=== PATIENT | female | born 1990 | race Two or more races ===

== ENCOUNTER → 2023-11-28 | Outpatient (CLI) | payer BC ==
[~2023-11-28] MED LIST: ACE3T PO
[2023-11-28 16:17] LABS: Urine Bacteria None Seen /hpf (None Seen)
[2023-11-28 16:36] LABS: Basophils # (auto) 0 10 ^3/uL (0-0.2); Basophils % (auto) 0.3 % (0.0-2.0); Eosinophils # (auto) 0.1 10 ^3/uL (0-0.8); Eosinophils % (auto) 0.9 % (0.0-7.0); Hematocrit 41.3 % (36.0-46.0); Hemoglobin 13.5 g/dL (12.2-16.2); Lymphocytes # (auto) 2.1 10 ^3/uL (0.4-5.4); Lymphocytes % (auto) 27.6 % (10.0-50.0); Mean Corpuscular Hemoglobin 28.8 pg (28.0-32.0); Mean Corpuscular Hgb Conc. 32.7 g/dL (32.0-36.0); Mean Corpuscular Volume 88.2 fL (80.0-100.0); Monocytes # (auto) 0.5 10 ^3/uL (0-1.3); Monocytes % (auto) 6.6 % (0.0-12.0); Neutrophils # (auto) 4.8 10 ^3/uL (1.6-8.6); Neutrophils % (auto) 64.6 % (37.0-80.0); Red Blood Cells 4.68 10^6/uL (4.0-5.20); White Blood Cell 7.5 10^3/uL (4.4-10.8)
[2023-11-28 16:41] LABS: Urine Blood 2+ /uL (Negative); Urine Clarity Turbid (Clear); Urine Color Yellow (Yellow); Urine Mucus FEW (None Seen); Urine Protein, UAD TRACE (Negative); Urine Specific Gravity 1.031 (1.001-1.035); Urine Urobilinogen Normal (Negative); Urine WBC 1 /hpf (0 - 5); Urine pH 6.5 (5.0-9.0)
[2023-11-28 16:57] LABS: INR 1.03 (0.9-1.15); Partial Thromboplastin Time 26.2 SEC (24.5-34.5); Prothrombin Time 10.9 sec (9.3-11.8)
[2023-11-28 17:18] LABS: Alanine Aminotransferase 13 U/L (7-40); Albumin 4.6 g/dL (3.2-4.8); Alkaline Phosphatase 70 U/L (46-116); Anion Gap 7 (5-15); Aspartate Aminotransferase 12 U/L (13-40); BUN/Creatinine Ratio 18.7 (10.0-20.0); Bilirubin, Total 0.6 mg/dL (0.2-1.0); Blood Urea Nitrogen 14 mg/dL (9-23); CRP High Sensitivity 0.06 mg/dL (<1.0); Calcium 9.7 mg/dL (8.5-10.1); Carbon Dioxide 28 mmol/L (20-30); Chloride 105 mmol/L (98-107); Glucose 77 mg/dL (74-106); Potassium 3.2 mmol/L (3.5-5.1); Sodium 140 mmol/L (136-145); Total Protein 7.6 g/dL (5.7-8.2)
[2023-11-28 17:22] LABS: Beta HCG, Quantitative 0.7 mIU/mL (1.5-4.2); Thyroid Stimulating Hormone 0.83 uIU/mL (0.55-4.78)
[2023-11-28 17:28] LABS: Erythrocyte Sedimentation Rate 9 mm/hr (0-20)
[2023-11-28 17:41] LABS: Follicle Stimulating Hormone 6.3 IU/L (SEE BELOW); Free T4 (Free Thyroxine) 1.07 ng/dL (0.89-1.76)
[2023-11-28 17:42] LABS: Leuteinizing Hormone 11.6 IU/L
[2023-11-29 08:06] LABS: RPR Non Reactive (Non Reactive); Rheumatoid Arthritis Factor <10.0 IU/mL (<14.0)
[2023-11-29 10:07] LABS: CA 27.29 20.1 U/mL (0.0-38.6)
[2023-11-29 12:06] LABS: Anti-Nuclear Antibody Direct Positive (Negative); Cancer Antigen (CA) 125 12.8 U/mL (0.0-38.1); Cancer Antigen (CA) 15-3 15.5 U/mL (0.0-25.0)
[2023-11-30 15:07] LABS: CCP IgG/IgA Antibody 0 units (0-19)
[2023-12-03 13:06] LABS: Estrogens Total 569 pg/mL (.)
== END | disposition home or self-care (01) ==
LOC: LAB 16:11
PROVIDERS: ATTEND Internal Medicine
DX: N63.0 Unspecified lump in unspecified breast (principal)
CPT/HCPCS: 36415; 80053; 81001; 82306; 82670; 82672; 83001; 83002; 83036; 84439; 84443; 84702; 85025; 85610; 85652; 85730; 86038; 86141; 86200; 86300; 86304; 86431; 86592; 86703; 86803

== ENCOUNTER → 2023-12-18 | Outpatient (CLI) | payer BC | END | disposition home or self-care (01) | LOC: XYW 09:06 | PROVIDERS: ATTEND Surgery | DX: D24.2 Benign neoplasm of left breast (principal); N60.32 Fibrosclerosis of left breast | CPT/HCPCS: 19083; 19084; 88305; A4648; 76642; 76942 ==

== ENCOUNTER 2023-12-19 06:59 | Day surgery (SDC) | payer BC ==
[2023-12-17 15:46] LABS: Urine Bacteria None Seen /hpf (None Seen)
[2023-12-17 15:47] LABS: Basophils # (auto) 0 10 ^3/uL (0-0.2); Basophils % (auto) 0.7 % (0.0-2.0); Eosinophils # (auto) 0.2 10 ^3/uL (0-0.8); Eosinophils % (auto) 2.2 % (0.0-7.0); Hematocrit 39.4 % (36.0-46.0); Lymphocytes # (auto) 2.5 10 ^3/uL (0.4-5.4); Lymphocytes % (auto) 34.1 % (10.0-50.0); Mean Corpuscular Hemoglobin 29.3 pg (28.0-32.0); Mean Corpuscular Volume 88.7 fL (80.0-100.0); Monocytes # (auto) 0.6 10 ^3/uL (0-1.3); Monocytes % (auto) 7.6 % (0.0-12.0); Neutrophils # (auto) 4.1 10 ^3/uL (1.6-8.6); Neutrophils % (auto) 55.4 % (37.0-80.0); Nucleated Red Blood Cells % 0.1 %; Red Blood Cells 4.45 10^6/uL (4.0-5.20); White Blood Cell 7.4 10^3/uL (4.4-10.8)
[2023-12-17 15:51] LABS: Urine Blood 2+ /uL (Negative); Urine Clarity Clear (Clear); Urine Color Yellow (Yellow); Urine Mucus FEW (None Seen); Urine Protein, UAD TRACE (Negative); Urine Specific Gravity 1.029 (1.001-1.035); Urine Urobilinogen Normal (Negative); Urine WBC 2 /hpf (0 - 5)
[2023-12-17 16:10] LABS: Alanine Aminotransferase 10 U/L (7-40); Alkaline Phosphatase 70 U/L (46-116); Anion Gap 6 (5-15); Aspartate Aminotransferase 10 U/L (13-40); BUN/Creatinine Ratio 20.6 (10.0-20.0); Blood Urea Nitrogen 13 mg/dL (9-23); Calcium 9.6 mg/dL (8.7-10.4); Carbon Dioxide 29 mmol/L (20-30); Chloride 106 mmol/L (98-107); Glucose 80 mg/dL (74-106); Potassium 3.4 mmol/L (3.5-5.1); Sodium 141 mmol/L (136-145)
[2023-12-17 16:11] LABS: Albumin 4.5 g/dL (3.2-4.8); Bilirubin, Total 0.5 mg/dL (0.2-1.0); Total Protein 7.5 g/dL (5.7-8.2)
[2023-12-17 16:26] LABS: INR 1.03 (0.9-1.15); Prothrombin Time 10.9 sec (9.3-11.8)
[~2023-12-19] VITALS: Ht 160 cm; Wt 65.8 kg
[2023-12-19] MEDS ORDERED: ceFAZolin 2 GM/D5W50ml 50 ML IV ONE (07:04)
[2023-12-19] MEDS ORDERED: PROPOFOL 10 MG/ML 20 ML IV ONE (07:10)
[2023-12-19] MEDS ORDERED: fentaNYL CITRATE 100 MCG/2 ML VL ONE ×2 (07:10→10:12)
[2023-12-19] MEDS ORDERED: MIDAZOLAM HCL 2MG/2ML 2ml VIAL (1mg/ml) ONE (07:11)
[2023-12-19] MEDS ORDERED: ONDANSETRON HCL 4 MG/2 ML VIAL ONE ×2 (07:35→10:44)
[2023-12-19] MEDS ORDERED: DexAMETHasone SOD PHOS 10MG/1ML VIAL INJ ONE ×2 (07:35→10:44)
[2023-12-19] MEDS ORDERED: ePHEDrine SULFATE 50 MG/ML AMP ONE (07:41)
[2023-12-19] MEDS ORDERED: MEPERIDINE HCL (25 MG/ML) 1ML VIAL ONE (07:43)
[2023-12-19] MEDS: BUPIVACAINE 0.5% MPF INJ 30ML SDV IJ ONE (07:54)
[2023-12-19] MEDS: LIDOCAINE W/ EPINEPHRINE 1% 20ML VIAL ONE (07:54)
[2023-12-19] MEDS ORDERED: BUPIVACAINE 0.5% MPF INJ 30ML SDV IJ ONE (08:14)
[2023-12-19 08:24] VITALS: RESP 13; TEMP 97.7; O2SAT 100
[2023-12-19] MEDS ORDERED: ACE3T PO (08:27)
[2023-12-19] MEDS ORDERED: MEPERIDINE HCL (25 MG/ML) 1ML VIAL IV PRN (08:30)
[2023-12-19] MEDS ORDERED: HYDROmorphone HCL 2 MG/ML VL/or syr IV PRN (08:30)
[2023-12-19] MEDS: ONDANSETRON HCL 4 MG/2 ML VIAL IV ONE (09:27)
[2023-12-19] MEDS ORDERED: METOCLOPRAMIDE HCL 5MG/ml INJ 2ml VIAL ONE (09:48)
[2023-12-19] MEDS: METOCLOPRAMIDE HCL 5MG/ml INJ 2ml VIAL IV ONE (09:50)
[2023-12-19 09:58] VITALS: BP 109/67; PULSE 71; RESP 14; O2SAT 100
[2023-12-19] MEDS ORDERED: ROCURONIUM 10MG/ML 10ML VIAL IV ONE (10:20)
[2023-12-19] MEDS ORDERED: PHENYLEPHRINE HCL 10 MG/ML VL ONE (10:32)
[2023-12-19] MEDS ORDERED: SUGAMMADEX 200mg/2ml Vial (100MG/ML) IV ONE (10:59)
== END 2023-12-19 10:10 | disposition home or self-care (01) ==
LOC: SUR 06:59 → EEVIPCON 07:00 → SUR 10:10
PROVIDERS: ATTEND Surgery
DX: N63.0 Unspecified lump in unspecified breast (principal); D24.1 Benign neoplasm of right breast; Z86.16 Personal history of COVID-19; Z98.890 Other specified postprocedural states
CPT/HCPCS: 19120; 36415; 80053; 81001; 81025; 85025; 85610; 85730; 88305; 88342; J0690; J1100; J2175; J2250; J2405; J2704; J2765; J3010; J3490

== ENCOUNTER → 2024-03-20 | Outpatient (CLI) | payer BC ==
[2024-03-20 15:47] LABS: Basophils # (auto) 0 10 ^3/uL (0-0.2); Basophils % (auto) 0.6 % (0.0-2.0); Eosinophils # (auto) 0.1 10 ^3/uL (0-0.8); Eosinophils % (auto) 1.4 % (0.0-7.0); Hemoglobin 14.1 g/dL (12.2-16.2); Lymphocytes # (auto) 2.8 10 ^3/uL (0.4-5.4); Lymphocytes % (auto) 39.6 % (10.0-50.0); Mean Corpuscular Hemoglobin 29.6 pg (28.0-32.0); Mean Corpuscular Hgb Conc. 33.6 g/dL (32.0-36.0); Mean Corpuscular Volume 88.2 fL (80.0-100.0); Monocytes # (auto) 0.6 10 ^3/uL (0-1.3); Neutrophils # (auto) 3.5 10 ^3/uL (1.6-8.6); Neutrophils % (auto) 50.4 % (37.0-80.0); Nucleated Red Blood Cells % 0.1 %; Platelet Count (auto) 218 10^3/uL (140-450); Red Blood Cells 4.77 10^6/uL (4.0-5.20); Red Cell Distribution Width 13.8 % (11.8-14.3)
[2024-03-20 16:00] LABS: Alanine Aminotransferase 10 U/L (7-40); Albumin 4.9 g/dL (3.2-4.8); Alkaline Phosphatase 78 U/L (46-116); Anion Gap 6 (5-15); Aspartate Aminotransferase 11 U/L (13-40); BUN/Creatinine Ratio 20.9 (10.0-20.0); Blood Urea Nitrogen 14 mg/dL (9-23); Calcium 9.9 mg/dL (8.7-10.4); Carbon Dioxide 27 mmol/L (20-31); Chloride 105 mmol/L (98-107); Glucose 78 mg/dL (74-106); Potassium 3.5 mmol/L (3.5-5.1); Sodium 138 mmol/L (136-145)
[2024-03-20 16:01] LABS: Bilirubin, Total 0.7 mg/dL (0.2-1.0); Total Protein 8.2 g/dL (5.7-8.2)
[2024-03-20 16:17] LABS: Protein, Urine 7.9 mg/dL (1-14)
[2024-03-20 16:19] LABS: CRP High Sensitivity 0.09 mg/dL (<1.0)
[2024-03-20 16:20] LABS: Creatinine, Urine 150.41 mg/dL (30.0-125.0); Urine Protein/Creatinine Ratio 0.05
[2024-03-20 16:46] LABS: Erythrocyte Sedimentation Rate 12 mm/hr (0-20)
[2024-03-21 06:07] LABS: Hepatitis B Core Total Antibod Negative (Negative)
== END | disposition home or self-care (01) ==
LOC: LAB 15:01
PROVIDERS: ATTEND Internal Medicine Rheumatology
DX: M32.10 Systemic lupus erythematosus, organ or system involvement unspecified (principal); M54.9 Dorsalgia, unspecified; I77.6 Arteritis, unspecified; R53.83 Other fatigue
CPT/HCPCS: 36415; 80053; 82570; 84156; 85025; 85613; 85652; 85670; 85705; 85732; 86141; 86147; 86706; 86812